=== PATIENT | female | born 1935 | race Caucasian/White ===

== ENCOUNTER 2017-04-09 16:21 | Inpatient (IN) | payer MEDICARE, MEDICAID ==
[2017-04-09] MEDS ORDERED: Haloperidol Lactate 5 mg/mL 1mL Vial IM PRN ×2 (16:46→18:45)
--- NOTE | 2017-04-09 16:56 | ED Physician Chart ---
Chief Complaint/HPI - Patient Information Date Seen:: 04/09/17 Time Seen:: 16:40 Chief Complaint:: agitation History of Present Illness:: Patient then agitated and striking out at staff at her [facility] facility. Allergies:: Allergies Allergy/AdvReac Type Severity Reaction Status Date / Time No Known Allergies Allergy Verified 04/09/17 16:44 Vitals:: Vital Signs - 8 hr 04/09/17 16:35 Temp 98.0 F HR 82 RR 18 BP 161/74 O2 Sat % 97 Historian:: EMS Review:: Nurse's Note Reviewed, Patient unable to respond Review of Systems - Review of Systems General/Constitutional: No fever, No chills Skin: No skin lesions Head: No headache Eyes: No loss of vision ENT: No earache Neck: No neck pain Cardio Vascular: No chest pain, No palpitations GI: No nausea, No vomiting Musculoskeletal: No bone or joint pain Endocrine: No polyuria, No polydipsia Psychiatric: Prior psych history Hematopoietic: No bruising Allergic/Immuno: No urticaria Neurological: No syncope Past Medical History - Past Medical History Past Medical History: HTN, CAD, Asthma/COPD, Dyslipidemia, Arthritis (Alzheimer disease; anemia; hyperlipidemia; depression; anxiety; insomnia), Dementia, Other Family History: Other (not available) Social History: Care Facility Surgical History: other (unavailable) Medication: Reviewed Family Medical History - Family Member Mother History Unknown: Yes Physical Exam - Physical Examination General/Constitutional: Well-developed, well-nourished, Alert, No distress Other Gen/Cons comments:: Agitated and confused Head: Atraumatic Eyes: Lids, conjuctiva normal, PERRL Skin: Nl inspection, No rash, No skin lesions ENMT: External ears, nose nl Neck: No nuchal rigidity Respiratory: Nl effort/Exclusion, Clear to Auscultation, No Wheeze/Rhonchi/Rales Cardio Vascular: RRR, No murmur, gallop, rubs GI: No tenderness/rebounding/guarding, No organomegaly, No hernia, Normal BS's Extremities: Normal digits & nails Labs/Radiology/EKG Results - Lab Results Results: Laboratory Results - last 24 hr 04/09/17 17:26 WBC 8.5 RBC 4.75 Hgb 13.6 Hct 42.3 MCV 89.0 MCH 28.5 MCHC Differential 32.1 RDW 13.5 Plt Count 217 MPV 7.7 Neutrophils % 63.2 Lymphocytes % 28.4 Monocytes % 6.3 Eosinophils % 1.9 Basophils % 0.2 Laboratory Results - last 24 hr 04/09/17 04/09/17 04/09/17 17:26 17:26 17:26 WBC 8.5 RBC 4.75 Hgb 13.6 Hct 42.3 MCV 89.0 MCH 28.5 MCHC Differential 32.1 RDW 13.5 Plt Count 217 MPV 7.7 Neutrophils % 63.2 Lymphocytes % 28.4 Monocytes % 6.3 Eosinophils % 1.9 Basophils % 0.2 Sodium 137 Potassium 3.8 Chloride 107 Carbon Dioxide 24.8 Anion Gap 9.0 BUN 22 Creatinine 0.7 Est GFR ( Amer) TNP Est GFR (Non-Af Amer) TNP BUN/Creatinine Ratio 31.4 Glucose 96 Calcium 10.0 Total Bilirubin 0.2 L AST 20 ALT 20 Alkaline Phosphatase 97 Total Protein 7.1 Albumin 4.3 Globulin 2.8 Albumin/Globulin Ratio 1.5 Triglycerides 77 Cholesterol 138 LDL Cholesterol Direct 78 HDL Cholesterol 51 TSH 2.18 Salicylates < 25.0 L Acetaminophen < 10.0 L Ethyl Alcohol < 10 - EKG Interpretations Rate & Rhythm: NSR rate 75 Aynor: normal ED Septic Shock - . Is Septic Shock (SBP<90, OR Lactate>4 mmol\L) present?: No - <6hrs of presentation: Vital Signs: Vital Signs - 8 hr 04/09/17 16:35 Temp 98.0 F HR 82 RR 18 BP 161/74 O2 Sat % 97 Reassessment (Disposition) - Reassessment Reassessment Condition:: Unchanged - Diagnosis Diagnosis:: dementia; agitation - Patient Disposition Admitted to:: [facility] Admitting Medical Physician:: Peter De Anda Admitting Psych Physician:: Bernard Nunez Condition at Disposition:: Stable, Unchanged
[2017-04-09] MEDS ORDERED: Haloperidol Lactate 5 mg/mL 1mL Vial ONE (16:57)
[2017-04-09 17:33] LABS: % BASOPHILS 0.2 % (0.0-2.0); % EOSINOPHILS 1.9 % (0.0-5.0); % LYMPHOCYTES 28.4 % (20.0-50.0); % MONOCYTES 6.3 % (2.0-10.0); % NEUTROPHILS 63.2 % (40.0-80.0); HEMATOCRIT 42.3 % (35.0-45.0); HEMOGLOBIN 13.6 gm/dL (11.7-16.1); MEAN CORPUSCULAR HEMOGLOBIN 28.5 pg (27.0-31.0); MEAN CORPUSCULAR HGB CONC 32.1 pg (28.0-36.0); MEAN PLATELET VOLUME 7.7 fl; NEUTROPHILE ABSOLUTE 5.4 Th/cmm (1.8-8.0); PLATELET COUNT 217 Th/cmm (150-400); RED BLOOD COUNT 4.75 Mil/cmm (3.80-5.20); RED CELL DISTRIBUTION WIDTH 13.5 % (11.5-20.0); WHITE BLOOD COUNT 8.5 Th/cmm (4.8-10.8)
[2017-04-09 17:50] LABS: ALB/GLOB RATIO 1.5 (1.0-1.8); ALKALINE PHOSPHATASE 97 U/L (34-104); BILIRUBIN,TOTAL 0.2 mg/dL (0.3-1.0); BUN - UREA NITROGEN 22 mg/dL (7-25); BUN/CREATININE RATIO 31.4; CARBON DIOXIDE 24.8 mEq/L (21.0-31.0); CHLORIDE 107 mEq/L (98-107); CHOLESTEROL 138 mg/dL (<200); CREATININE - SERUM 0.7 mg/dL (0.6-1.2); GLUCOSE 96 mg/dL (70-105); POTASSIUM SERUM 3.8 mEq/L (3.5-5.1); SGOT 20 U/L (13-39); SGPT/ALT 20 U/L (7-52); SODIUM SERUM 137 mEq/L (136-145); TRIGLYCERIDES 77 mg/dL (<150)
[2017-04-09 17:54] LABS: ACETAMINOPHEN < 10.0 ug/mL (10.0-30.0)
[2017-04-09 20:04] VITALS: BP 118/68
[2017-04-09] MEDS ORDERED: Magnesium Hydroxide (MOM) 30 mL UDC PO PRN (20:05)
[2017-04-09] MEDS: Atorvastatin Calcium 10 MG TAB PO SCH (21:03)
--- NOTE | 2017-04-10 15:33 | Consultation ---
DATE OF CONSULTATION: 04/10/2017 INTERNAL MEDICINE CONSULTATION HISTORY OF PRESENT ILLNESS: The patient of is an 82-year-old patient, patient of mine. PAST MEDICAL HISTORY: Significant for COPD, hypertension, coronary artery disease, peptic ulcer disease, gastritis, arthritis, osteoporosis and hyperlipidemia. SOCIAL HISTORY: No prior history of smoking, alcohol abuse. FAMILY HISTORY: Not available. OBSTETRIC HISTORY: P2 plus 0. Menses, postmenopausal. REVIEW OF SYSTEMS: Poor historian due to advanced dementia. No vomiting, no diarrhea, no melena, no hematochezia. PHYSICAL EXAMINATION: GENERAL: Average female in no obvious respiratory distress. VITAL SIGNS: Include a blood pressure 140/80, heart rate 80, respiration rate of 18. SKIN: Show no obvious cellulitis. HEENT: Normal conjunctivae. NECK: Supple. LUNGS: Show bilateral rhonchi as well as crepitation. No bronchial breathing. HEART: ____ present. ABDOMEN: Soft, minimal epigastric tenderness. Bowel sounds present, good. EXTREMITIES: Show arthritis. NEUROLOGIC: The patient with dementia. LABORATORY DATA: Include sodium 137, potassium 3.8, chloride 107, bicarb 24.8, BUN 22, creatinine 0.7. Lipid profile is reviewed, glucose of 96. MEDICAL DIAGNOSES: Include hypertension, chronic obstructive pulmonary disease, coronary artery disease, gastritis, arthritis, hyperlipidemia, osteoporosis and dementia. TREATMENT PLAN: The patient will continue medicines as per The patient was seen and evaluated at the bedside today. Mood dysphoric. Affect is constricted. He remains anxious, paranoid, hopeless, helpless, depressed, suicidal with intent to overdose on medications and requires acute inpatient treatment. PROGNOSIS: Fair to guarded. JOB# [id number]
[2017-04-10] MEDS: Atorvastatin Calcium 10 MG TAB PO SCH (21:18)
--- NOTE | 2017-04-11 02:59 | Psychosocial Evaluation ---
DATE OF SERVICE: 04/09/2017 IDENTIFYING DATA: The patient is an 82-year-old woman, resident of [facility] in [place]. JUSTIFICATION FOR HOSPITALIZATION: The patient is admitted on 5050 as a danger to others and being gravely disabled. CHIEF COMPLAINT: "I don't know." HISTORY OF PRESENT ILLNESS: This is the first psychiatric hospitalization for this patient who is reported to have been agitated and striking out at the staff members and the patient has been admitted over here for stabilization. Staff was spoken to. The patient is interviewed and at the time of the hospitalization, the patient was on mirtazapine 15 mg at bedtime, Namenda 5 mg in the morning and the patient is also on ____ acid 250 mg 2 times a day. Even with the medication, the patient has been having difficult time to cope with the stress. The patient has not been able to contract for safety at this time. The patient is very confused and I am not able to get much of information. The patient's insight and judgment are noted to be impaired. PAST PSYCHIATRIC HISTORY: Details are not known. MEDICAL HISTORY: Physical exam is requested to be done by Dr. De Anda. SUBSTANCE ABUSE HISTORY: None. PHYSICAL OR SEXUAL ABUSE HISTORY: None. LEGAL PROBLEMS: None at this time. STRENGTH AND ASSETS: The patient is motivated. MENTAL STATUS EXAMINATION: The patient is an 82-year-old, looking her stated age, superficially cooperative. Eye contact is poor. Mood is noted to be irritable. Affect is constricted. The patient is confused. At this time, attention span and concentration are noted to be poor. The patient is reported to have been trying to ____. The patient could not be contained at a lower level of care. DIAGNOSTIC IMPRESSION: AXIS I: Psychosis, not otherwise specified. B. Dementia and behavioral change, secondary to it. AXIS II: None. AXIS III: As per Dr. De Anda. IMMEDIATE TREATMENT PLAN: The patient is going to be observed on inpatient unit, provided with supportive psychotherapy. The patient is going to be closely monitored. The patient is going to be encouraged to verbalize the concerns rather than to act out. Once stabilized, the patient is going to be discharged to [facility] for followup on outpatient basis. ESTIMATED LENGTH OF STAY: 5-7 days. DISCHARGE CRITERIA: When patient is no longer a threat to self or others and be able to cope up with the stress. [facility]# [id number]
--- NOTE | 2017-04-11 12:13 | Progress Notes ---
DATE: 04/11/2017 SUBJECTIVE: Staff was spoken to. The patient is interviewed. Mood is noted to be irritable. Affect is constricted. Insight and judgment are noted to be still impaired. Impulse control seems to be limited. The patient has been hitting the Susan chair and wants to get out of the chair. The patient has no insight into her illness. Coping skills are noted to be very poor. ASSESSMENT: The patient is still impulsive, confused and agitated. PLAN: To continue the patient with the current medications. I encouraged the patient to verbalize the concerns. The patient is currently on mirtazapine 15 mg at bedtime, and lorazepam 0.5 mg q. 6 p.r.n., Depakote 250 mg twice a day and the patient is going to be closely monitored and followed up. The patient is not ready to be discharged to a lower level of care yet. JOB# [id number]
[2017-04-11] MEDS: Atorvastatin Calcium 10 MG TAB PO SCH (20:30)
--- NOTE | 2017-04-12 20:05 | Progress Notes ---
DATE: 04/12/2017 PSYCHIATRIC PROGRESS NOTE SUBJECTIVE: Staff was spoken to. The patient is interviewed. The patient's mood is noted to be dysphoric. Coping skills are noted to be poor. Speech is noted to be poor, but is irrelevant. The patient's insight and judgment are noted to be still impaired. The patient has been depressed, isolative, and withdrawn. The patient's coping skills are noted to be very poor. The patient is currently on mirtazapine as well as the Depakote. The patient has been able to tolerate the medications. No side effects of the medications are noted. PLAN: To request for the Depakote level and follow the patient with the supportive therapy. JOB# [id number]
[2017-04-12] MEDS: Atorvastatin Calcium 10 MG TAB PO SCH (21:48)
--- NOTE | 2017-04-13 19:17 | Progress Notes ---
DATE: 04/13/2017 PSYCHIATRIC PROGRESS NOTE SUBJECTIVE: Staff was spoken to. The patient is interviewed. Mood is noted to be still depressed. Affect is constricted. The patient is screaming and yelling, but the aggressive behavior seems to be coming under control. The patient is currently on mg twice a day. The patient has been able to tolerate the medication. ASSESSMENT: The patient is still impulsive. PLAN: To continue the patient with supportive therapy and followup. [facility]# [id number]
[2017-04-13] MEDS: Atorvastatin Calcium 10 MG TAB PO SCH (21:51)
--- NOTE | 2017-04-14 21:01 | Progress Notes ---
DATE: 04/14/2017 PSYCHIATRIC PROGRESS NOTE TIME PATIENT SEEN: 8:30 a.m. SUBJECTIVE: Staff was spoken to. The patient is interviewed. Mood is noted to be irritable. Affect is constricted. The patient has been depressed, isolative, and withdrawn. The patient's personal hygiene is noted to be poor today. The patient has been getting easily agitated and hitting on the GD chair. The patient is currently on mirtazapine 15 mg at bedtime and valproic acid 250 mg twice a day. The patient has been able to tolerate the medications. No major side effects to the medications are noted. ASSESSMENT: The patient is still depressed. PLAN: To continue the patient with supportive therapy. I encouraged the patient to verbalize the concerns rather than to act out. JOB# [id number]
[2017-04-14] MEDS: Atorvastatin Calcium 10 MG TAB PO SCH (22:12)
[2017-04-15] MEDS: Atorvastatin Calcium 10 MG TAB PO SCH (21:04)
--- NOTE | 2017-04-16 03:25 | Progress Notes ---
DATE: 04/15/2017 SUBJECTIVE: Staff was spoken to. The patient is interviewed. Mood is noted to be irritable. Affect is constricted. Insight and judgment at this time are noted to be still impaired. Impulse control seems to be poor. The patient is getting easily agitated. No side effects to the medications are noted. The patient has been having difficult time to cope with the stress. ASSESSMENT: The patient is still agitated and demented and not ready to be discharged to a lower level of care. PLAN: To continue the patient with the supportive therapy, encouraged the patient to verbalize the concerns rather than to act out. JOB# [id number]
--- NOTE | 2017-04-16 10:40 | Progress Notes ---
DATE: 04/16/2017 SUBJECTIVE: Staff was spoken to. The patient is interviewed. Mood is noted to be less irritable. Affect is appropriate. The patient has been isolative and withdrawn. The patient moods seems to be stabilizing. The patient is currently on mirtazapine 15 mg at bedtime and valproic acid 250 mg twice a day. The patient has been able to tolerate the medication. No major behavioral problems are noted today. ASSESSMENT: The patient is stabilizing and the valproic acid level is noted to 62.9. PLAN: To discharge the patient today for followup on outpatient basis if the bed is available. JOB# [id number]
--- NOTE | 2017-04-18 14:31 | Discharge Summary ---
DATE OF DISCHARGE: 04/16/2017 IDENTIFYING DATA: The patient is an 82-year-old woman, resident of [facility] in [place]. JUSTIFICATION OF HOSPITALIZATION: The patient is admitted on 5150 as a danger to others and being gravely disabled. CHIEF COMPLAINT: "I don't know." DIAGNOSES AT THE TIME OF ADMISSION: AXIS I: A: Dementia and behavioral change, secondary trait. B: Psychosis, not otherwise specified. AXIS II: None. AXIS III: As per Dr. De Anda. HISTORY OF PRESENT ILLNESS: Please refer the 04/10/2017 dictation done by me. Physical examination was done by Dr. De Anda and is noted to be significant for hypertension, COPD, coronary artery disease, gastritis, arthritis, and hyperlipidemia. HOSPITAL COURSE AND RESPONSE TO TREATMENT: The patient has been observed on the inpatient unit, provided with supportive psychotherapy. The patient has been closely monitored and patient has been placed on the Depakote 250 mg twice a day for her aggressive behavior. The patient's mirtazapine was continued at 15 mg at bedtime. With these medications, the patient was observed and was noted to be doing fairly well. No major behavioral problems are noted. The patient also has been placed on the Aricept and Namenda. The patient's coping skills started to improve. No side effects to the medications are noted at the time of discharge. CONDITION: At the time of discharge is noted to be stable. DIAGNOSES AT THE TIME OF DISCHARGE: AXIS I: A: Mood disorder, not otherwise specified. B: Dementia and behavioral change, secondary trait. AXIS II: None. AXIS III: Chronic obstructive pulmonary disease, hypertension, coronary artery disease, and hyperlipidemia. AFTERCARE PLAN: The patient is discharged back to [facility] for further followup. PROGNOSIS: At the time of discharge noted to be fair with the treatment. JOB# [id number]
== END 2017-04-16 15:20 | DRG 885 ==
LOC: ER 16:21 → GERO 18:08
PROVIDERS: ADMIT Psychiatry & Neurology Psychiatry; ATTEND Psychiatry & Neurology Psychiatry
DX: F29 Unspecified psychosis not due to a substance or known physiological condition (principal); G30.9 Alzheimer's disease, unspecified; F02.81 Dementia in other diseases classified elsewhere, unspecified severity, with behavioral disturbance; R45.851 Suicidal ideations; F39 Unspecified mood [affective] disorder; J44.9 Chronic obstructive pulmonary disease, unspecified; I10 Essential (primary) hypertension; I25.10 Atherosclerotic heart disease of native coronary artery without angina pectoris; M19.90 Unspecified osteoarthritis, unspecified site; E78.5 Hyperlipidemia, unspecified; D64.9 Anemia, unspecified; M81.0 Age-related osteoporosis without current pathological fracture; F41.9 Anxiety disorder, unspecified; G47.00 Insomnia, unspecified; K29.70 Gastritis, unspecified, without bleeding; Z87.11 Personal history of peptic ulcer disease
CPT/HCPCS: 36415-UA; 80053-TC; 80061-TC; 80164-TC; 80320-TC; 80329-TC; 82948-90; 84443-TC; 85025-TC; 86592-TC; 90899; 93005; J1200; J1630; J2060